=== PATIENT | female | born 1995 ===

== ENCOUNTER 2020-11-02 16:00 | Emergency (ER) | payer MEDICAID ==
--- NOTE | 2020-11-02 18:31 | Emergency Department Report ---
ED General Adult HPI - General Stated complaint: EYEBROWN IRRATION Time Seen by Provider: 11/02/20 18:26 - History of Present Illness Initial comments: Patient complains of swelling to eyebrows bilaterally with itchiness and yellowish drainage for the past 5 days. She states her symptoms started immediately after getting her eyebrows tinted and threaded. Benadryl is not helping per patient. She denies any fever/chills/sweats, vision changes, or kika nful eye movements. -: Sudden - Related Data Previous Rx's Medication Instructions Recorded Last Taken Type Loratadine 10 mg PO QDAY PRN #10 tablet 11/02/20 Unknown Rx Prednisone [predniSONE 10 mg 10 mg PO .TAPER #1 tab.ds.pk 11/02/20 Unknown Rx (6-Day Pack, 21 Tabs)] Triamcinolone Acetonide 15 gm TP TID PRN 7 Days #1 11/02/20 Unknown Rx [Triamcinolone Acetonide Oint 0.5%] oint...g. cephALEXin [Keflex] 500 mg PO Q8HR 7 Days #21 cap 11/02/20 Unknown Rx ED Review of Systems ROS: Stated complaint: EYEBROWN IRRATION Other details as noted in HPI Constitutional: denies: malaise ENT: denies: throat pain (No dysphagia) Respiratory: denies: shortness of breath Skin: rash, pruritus Neurological: denies: headache ED Past Medical Hx - Medications Home Medications: Home Medications Medication Instructions Recorded Confirmed Last Taken Type Loratadine 10 mg PO QDAY PRN #10 tablet 11/02/20 Unknown Rx Prednisone [predniSONE 10 mg 10 mg PO .TAPER #1 tab.ds.pk 11/02/20 Unknown Rx (6-Day Pack, 21 Tabs)] Triamcinolone Acetonide 15 gm TP TID PRN 7 Days #1 11/02/20 Unknown Rx [Triamcinolone Acetonide Oint 0.5%] oint...g. cephALEXin [Keflex] 500 mg PO Q8HR 7 Days #21 cap 11/02/20 Unknown Rx ED Physical Exam - General General appearance: alert, in no apparent distress - Head Head exam: Present: atraumatic, normocephalic - Eye Eye exam: Present: normal appearance. Absent: scleral icterus, periorbital swelling - Neck Neck exam: Present: normal inspection - Respiratory Respiratory exam: Absent: respiratory distress - Cardiovascular Cardiovascular Exam: Present: regular rate - Neurological Exam Neurological exam: Present: alert, oriented X3 - Psychiatric Psychiatric exam: Present: normal affect, normal mood - Skin Skin exam: Present: warm, rash (Rash noted bilaterally to eyebrows with serous weeping and papules consistent with allergic dermatitis) ED Medical Decision Making - Medical Decision Making Patient complains of swelling to eyebrows bilaterally with itchiness and yellowish drainage for the past 5 days. She states her symptoms started immediately after getting her eyebrows tinted and threaded. Benadryl is not helping per patient. She denies any fever/chills/sweats, vision changes, or painful eye movements. We will treat for contact dermatitis with triamcinolone, prednisone, Claritin. Recommend follow-up with PCP in 3 days. Her vitals are within normal limits, she is well-appearing, she is stable for discharge home. Discussed signs and symptoms that should prompt immediate return to the emergency department in detail with patient who verbalized understanding. Critical care attestation.: If time is entered above; I have spent that time in minutes in the direct care of this critically ill patient, excluding procedure time. ED Disposition Clinical Impression: Contact dermatitis Disposition: [id number]-01 TO HOME OR SELFCARE Is pt being admited?: No Condition: Stable Instructions: Contact Dermatitis Prescriptions: cephALEXin [Keflex] 500 mg PO Q8HR 7 Days #21 cap Loratadine 10 mg PO QDAY PRN #10 tablet PRN Reason: Itching Prednisone [predniSONE 10 mg (6-Day Pack, 21 Tabs)] 10 mg PO .TAPER #1 tab.ds.pk Triamcinolone Acetonide [Triamcinolone Acetonide Oint 0.5%] 15 gm TP TID PRN 7 Days #1 oint...g. PRN Reason: Itching Referrals: [facility] [Provider Group] - 3-5 Days
[2020-11-02 18:37] VITALS: BP 133/78
[2020-11-02] MEDS ORDERED: predniSONE 20 MG TAB PO ONE (18:43)
== END 2020-11-02 18:36 | disposition home or self-care (01) ==
LOC: ED 16:00
DX: L25.9 Unspecified contact dermatitis, unspecified cause (principal); Z79.899 Other long term (current) drug therapy; Z88.8 Allergy status to other drugs, medicaments and biological substances
CPT/HCPCS: 99281; J7512